=== PATIENT | male | born 1975 | race Caucasian/White ===

== ENCOUNTER 2019-01-25 16:57 | Emergency (ER) | payer OTHER ==
[~2019-01-25] VITALS: Ht 172.7 cm; Wt 95.3 kg
== END 2019-01-25 21:57 | disposition home or self-care (01) ==
LOC: ER 16:57
DX: R53.83 Other fatigue (principal); R42 Dizziness and giddiness; T59.894A Toxic effect of other specified gases, fumes and vapors, undetermined, initial encounter; Y92.813 Airplane as the place of occurrence of the external cause